=== PATIENT | male | born 1995 | race African-American/Black ===

== ENCOUNTER 2016-07-09 15:35 | Emergency (ER) | payer MEDICAID ==
[~2016-07-09] VITALS: Ht 195.6 cm; Wt 77.1 kg
[2016-07-09] MEDS ORDERED: ACETAMINOPHEN-1 EAC1 ORAL (16:31)
[2016-07-09] MEDS ORDERED: VENTOLIN HFA18 GM INH (16:31)
[2016-07-09 16:40] VITALS: BP 121/62
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
== END 2016-07-09 16:45 | disposition home or self-care (01) ==
LOC: EMR 16:40
DX: R05 Cough (principal); M54.5 Low back pain
CPT/HCPCS: 99284

== ENCOUNTER 2017-03-14 13:56 | Inpatient (IN) | payer MEDICAID ==
[~2017-03-14] VITALS: Ht 193 cm; Wt 78.5 kg
[~2017-03-14 13:56] MED LIST: ACETAMINOPHEN-1 EAC1 ORAL; VENTOLIN HFA18 GM INH
[2017-03-14] MEDS ORDERED: NKM (14:08)
--- NOTE | 2017-03-14 14:09 | Emergency Room Report ---
History of Present Illness General Chief Complaint: To Be Triaged Source: Patient Present Illness HPI The patient presents vomiting weakness. He feels like it's alcohol toxicity but he hasn't been drinking. Denies vomiting blood. He's had loose stools also. He denies, pain. Feels it is about to pass out. This started yesterday. He denies recent alcohol use, unusual foods, travel or exposure to ill contacts. He denies chest pain, shortness of breath (although he has a history of asthma) , cough, sore throat, joint pain, skin rashes. Allergies: Coded Allergies: No Known Allergies (Unverified , 07/09/16) Patient History Past Medical History: see triage record Social History: Reports: smoking - Prior, alcohol use - not recent, Denies: drug use Social History Narrative at home Reviewed Nursing Documentation: PMH: Agreed, PSxH: Agreed Review of Systems All Other Systems: negative except mentioned in HPI Physical Exam Vital Signs Date Time Temp Pulse Resp B/P (MAP) Pulse Ox O2 Delivery O2 Flow Rate FiO2 03/14/17 14:05 98.2 58 18 141/78 100 Room Air Sp02 EP Interpretation: reviewed, normal General Appearance: GCS 15, moderate distress, lethargic Head: normocephalic Eyes: bilateral eye normal inspection, bilateral eye PERRL ENT: moist mucus membranes Neck: supple Respiratory: lungs clear, normal breath sounds Cardiovascular #1: regular rate, rhythm Cardiovascular #2: 2+ radial (R) Gastrointestinal: normal inspection, no mass, non-distended, no guarding, no rebound, tenderness - epigastric, decreased bowel sounds, scaphoid Musculoskeletal: back normal, normal range of motion Neurologic: alert, oriented x3, grossly normal Psychiatric: depressed affect, anxious Skin: normal inspection, warm/dry, other - sallo Medical Decision Making Diagnostic Impression: Primary Impression: Intractable vomiting Qualified Codes: R11.2 - Nausea with vomiting, unspecified Additional Impression: Abdominal pain Qualified Codes: R10.13 - Epigastric pain ER Course Patient presents with vomiting weakness. Differential includes gastroenteritis , appendicitis, food poisoning, gastritis, peptic ulcer disease amongst others. He needs IV hydration and Zofran. In addition we need to evaluate his labs including a lactic acid. Labs without leukocytosis, slightly low potassium, increased lactate. Initial improvement, then c/o increased pain. Treated. Continued vomiting. Still with pain. Treated with reglan. Continued vomiting, but less often. Admit med Dr. Oropeza. Laboratory Tests Test 03/14/17 14:30 White Blood Count 5.8 K/UL (4.8-10.8) Red Blood Count 5.39 M/UL (4.70-6.10) Hemoglobin 16.4 G/DL (14.2-18.0) Hematocrit 46.9 % (42.0-52.0) Mean Corpuscular Volume 87 FL (80-99) Mean Corpuscular Hemoglobin 30.3 PG (27.0-31.0) Mean Corpuscular Hemoglobin Concent 34.9 G/DL (32.0-36.0) Red Cell Distribution Width 10.9 % (11.6-14.8) L Platelet Count 228 K/UL (150-450) Mean Platelet Volume 7.2 FL (6.5-10.1) Neutrophils (%) (Auto) 62.0 % (45.0-75.0) Lymphocytes (%) (Auto) 29.9 % (20.0-45.0) Monocytes (%) (Auto) 6.1 % (1.0-10.0) Eosinophils (%) (Auto) 0.6 % (0.0-3.0) Basophils (%) (Auto) 1.4 % (0.0-2.0) Sodium Level 137 MMOL/L (136-145) Potassium Level 3.6 MMOL/L (3.5-5.1) Chloride Level 102 MMOL/L (98-107) Carbon Dioxide Level 26 MMOL/L (21-32) Anion Gap 10 mmol/L (5-15) Blood Urea Nitrogen 12 mg/dL (7-18) Creatinine 1.1 MG/DL (0.55-1.30) Estimate Glomerular Filtration Rate > 60 mL/min (>60) Glucose Level 136 MG/DL (74-106) H Lactic Acid Level 2.40 mmol/L (0.66-2.22) H Calcium Level 9.9 MG/DL (8.5-10.1) Total Bilirubin 1.2 MG/DL (0.2-1.0) H Direct Bilirubin 0.2 MG/DL (0.0-0.3) Aspartate Amino Transferase (AST) 34 U/L (15-37) Alanine Aminotransferase (ALT) 42 U/L (12-78) Alkaline Phosphatase 74 U/L (46-116) Total Protein 8.1 G/DL (6.4-8.2) Albumin 4.5 G/DL (3.4-5.0) Globulin 3.6 g/dL Albumin/Globulin Ratio 1.2 (1.0-2.7) Lipase 123 U/L (73-393) Serum Alcohol < 3 mg/dL Rhythm Strip Diag. Results Rhythm: NSR, no PVC's, no ectopy Other X-Ray Diagnostic Results Other X-Ray Diagnostic Results : X-Ray ordered: abd # of Views/Limited Vs Complete: 1 View Indication: Other EP Interpretation: Yes Interpretation: nonspecific bowel gas, no sbo, other - no masses Impression: No acute disease Electronically Signed by: Marcelo Marshall MD Last Vital Signs Date Time Temp Pulse Resp B/P (MAP) Pulse Ox O2 Delivery O2 Flow Rate FiO2 03/15/17 04:00 98.2 20 112/59 100 Room Air 03/14/17 19:51 68 Status: improved Disposition: ADMITTED INPATIENT Condition: Serious Scripts No Active Prescriptions or Reported Meds Marcelo Marshall M.D. Mar 14, 2017 14:09
[2017-03-14 14:47] LABS: BASOPHILS % (AUTO) 1.4 % (0.0-2.0); EOSINOPHILS % (AUTO) 0.6 % (0.0-3.0); HEMATOCRIT 46.9 % (42.0-52.0); HEMOGLOBIN 16.4 G/DL (14.2-18.0); LYMPHOCYTES % (AUTO) 29.9 % (20.0-45.0); MEAN CORPUSCULAR VOLUME 87 FL (80-99); MONOCYTES % (AUTO) 6.1 % (1.0-10.0); PLATELET COUNT 228 K/UL (150-450); RED BLOOD COUNT 5.39 M/UL (4.70-6.10); RED CELL DISTRIBUTION WIDTH 10.9 % (11.6-14.8); WHITE BLOOD COUNT 5.8 K/UL (4.8-10.8)
[2017-03-14 15:19] LABS: ALANINE AMINOTRANSFERASE 42 U/L (12-78); ALBUMIN 4.5 G/DL (3.4-5.0); ALBUMIN/GLOBULIN RATIO 1.2 (1.0-2.7); ALKALINE PHOSPHATASE 74 U/L (46-116); ANION GAP 10 mmol/L (5-15); ASPARTATE AMINO TRANSFERASE 34 U/L (15-37); BLOOD UREA NITROGEN 12 mg/dL (7-18); CALCIUM 9.9 MG/DL (8.5-10.1); CARBON DIOXIDE 26 MMOL/L (21-32); CHLORIDE 102 MMOL/L (98-107); CREATININE 1.1 MG/DL (0.55-1.30); POTASSIUM 3.6 MMOL/L (3.5-5.1); SODIUM 137 MMOL/L (136-145)
[2017-03-14 15:20] LABS: BILIRUBIN,TOTAL 1.2 MG/DL (0.2-1.0)
[2017-03-14] MEDS ORDERED: Morphine Sulfate 4mg/ml Inj IVP ONE (15:30)
[2017-03-14 15:38] LABS: BILIRUBIN,DIRECT 0.2 MG/DL (0.0-0.3)
[2017-03-14 16:00] VITALS: BP 140/76
[2017-03-14] MEDS ORDERED: Metoclopramide 10mg/2ml Inj IVP ONE (16:30)
[2017-03-14] MEDS ORDERED: DiphenhydrAMINE 50mg/ml Inj IVP ONE (16:30)
[2017-03-14] MEDS ORDERED: fentaNYL 100 mcg/2 mL IV ONE (17:30)
[2017-03-14 18:30] VITALS: BP 142/77
[2017-03-14 20:00] VITALS: BP 131/96
[2017-03-14] MEDS ORDERED: Morphine Sulfate 4mg/ml Inj IVP PRN (20:45)
[2017-03-14] MEDS: Pantoprazole Inj IVP SCH (21:14)
[2017-03-14] MEDS: D5NS 1,000 ML IV SCH (21:14)
[2017-03-14] MEDS: Heparin 5000 units/ml inj SUBQ SCH (21:21)
[2017-03-15] VITALS: BP 115/61
[2017-03-15 04:00] VITALS: BP 112/59
[2017-03-15] MEDS: D5NS 1,000 ML IV SCH (07:00)
--- NOTE | 2017-03-15 07:33 | History & Physical ---
History and Physical History & Physicial seen and examined. Dictation is completed Toni Oropeza MD Mar 15, 2017 07:33
--- NOTE | 2017-03-15 07:33 | History & Physical ---
History and Physical History & Physicial seen and examined. Dictation is completed Toni Oropeza MD Mar 15, 2017 07:33
--- NOTE | 2017-03-15 07:33 | History & Physical ---
History and Physical History & Physicial seen and examined. Dictation is completed Toni Oropeza MD Mar 15, 2017 07:33
--- NOTE | 2017-03-15 07:34 | General Progress Note ---
Assessment/Plan Status: stable Assessment/Plan 1- Acute gastritis 2- Abn LFT 3- Abn BS 4- GI-DVT prophylaxia Plan: Current conservative management Gi-Dr Kellogg consulted Subjective Allergies: Coded Allergies: No Known Allergies (Unverified , 07/09/16) Objective Last 24 Hour Vital Signs Date Time Temp Pulse Resp B/P (MAP) Pulse Ox O2 Delivery O2 Flow Rate FiO2 03/15/17 04:00 98.2 20 112/59 100 Room Air 03/15/17 00:00 98.0 18 115/61 97 Room Air 03/14/17 20:00 97.9 16 131/96 98 Room Air 03/14/17 19:51 68 20 119/63 100 Room Air 03/14/17 18:30 98.2 18 142/77 100 Room Air 03/14/17 16:25 98.2 03/14/17 16:25 98.2 03/14/17 16:00 98.2 16 140/76 100 Room Air 03/14/17 14:05 98.2 58 18 141/78 100 Room Air Laboratory Tests 03/14/17 14:30: White Blood Count 5.8, Red Blood Count 5.39, Hemoglobin 16.4, Hematocrit 46.9, Mean Corpuscular Volume 87, Mean Corpuscular Hemoglobin 30.3, Mean Corpuscular Hemoglobin Concent 34.9, Red Cell Distribution Width 10.9L, Platelet Count 228, Mean Platelet Volume 7.2, Neutrophils (%) (Auto) 62.0, Lymphocytes (%) (Auto) 29.9, Monocytes (%) (Auto) 6.1, Eosinophils (%) (Auto) 0.6, Basophils (%) (Auto ) 1.4, Sodium Level 137, Potassium Level 3.6, Chloride Level 102, Carbon Dioxide Level 26, Anion Gap 10, Blood Urea Nitrogen 12, Creatinine 1.1, Estimat Glomerular Filtration Rate > 60, Glucose Level 136H, Lactic Acid Level 2.40H, Calcium Level 9.9, Total Bilirubin 1.2H, Direct Bilirubin 0.2, Aspartate Amino Transf (AST/SGOT) 34, Alanine Aminotransferase (ALT/SGPT) 42, Alkaline Phosphatase 74, Total Protein 8.1, Albumin 4.5, Globulin 3.6, Albumin/Globulin Ratio 1.2, Lipase 123, Serum Alcohol < 3 03/14/17 18:20: Lactic Acid Level 1.50 03/15/17 05:15: White Blood Count [Pending], Red Blood Count [Pending], Hemoglobin [Pending], Hematocrit [Pending], Mean Corpuscular Volume [Pending], Mean Corpuscular Hemoglobin [Pending], Mean Corpuscular Hemoglobin Concent [Pending], Red Cell Distribution Width [Pending], Platelet Count [Pending], Mean Platelet Volume [ Pending], Neutrophils (%) (Auto) [Pending], Lymphocytes (%) (Auto) [Pending], Monocytes (%) (Auto) [Pending], Eosinophils (%) (Auto) [Pending], Basophils (%) (Auto) [Pending], Sodium Level [Pending], Potassium Level [Pending], Chloride Level [Pending], Carbon Dioxide Level [Pending], Blood Urea Nitrogen [Pending], Creatinine [Pending], Estimat Glomerular Filtration Rate [Pending], Glucose Level [Pending], Calcium Level [Pending], Hemoglobin A1c [Pending], Triglycerides Level [Pending], Cholesterol Level [Pending], LDL Cholesterol [ Pending], HDL Cholesterol [Pending], Cholesterol/HDL Ratio [Pending], Amylase Level [Pending] Height (Feet): 6 Height (Inches): 4.00 Weight (Pounds): 173 Toni Oropeza MD Mar 15, 2017 07:34
[2017-03-15 07:48] LABS: AMYLASE 48 U/L (25-115); ANION GAP 5 mmol/L (5-15); BLOOD UREA NITROGEN 10 mg/dL (7-18); CALCIUM 9.3 MG/DL (8.5-10.1); CARBON DIOXIDE 29 MMOL/L (21-32); CHLORIDE 105 MMOL/L (98-107); CHOLESTEROL 123 MG/DL (< 200); HDL CHOLESTEROL 54 MG/DL (40-60); POTASSIUM 3.8 MMOL/L (3.5-5.1); SODIUM 139 MMOL/L (136-145); TRIGLYCERIDES 28 MG/DL (0-200)
[2017-03-15 07:59] LABS: BASOPHILS % (AUTO) 0.9 % (0.0-2.0); EOSINOPHILS % (AUTO) 0.1 % (0.0-3.0); HEMATOCRIT 42.9 % (42.0-52.0); HEMOGLOBIN 15.4 G/DL (14.2-18.0); LYMPHOCYTES % (AUTO) 23.7 % (20.0-45.0); MEAN CORPUSCULAR VOLUME 87 FL (80-99); MONOCYTES % (AUTO) 8.4 % (1.0-10.0); PLATELET COUNT 230 K/UL (150-450); RED BLOOD COUNT 4.91 M/UL (4.70-6.10); WHITE BLOOD COUNT 9.1 K/UL (4.8-10.8)
[2017-03-15 08:00] VITALS: BP 105/64
[2017-03-15] MEDS: Pantoprazole Inj IVP SCH (08:45)
[2017-03-15] MEDS: Heparin 5000 units/ml inj SUBQ SCH (08:46)
--- NOTE | 2017-03-15 09:23 | Diagnostic Imaging Report ---
Indication: VOMITING. Technique: One view abdomen Findings: The bowel gas pattern is nonobstructive. The bones are unremarkable. There is no free fluid. No gross free air. No gross organomegaly. Impression: Negative abdomen..
--- NOTE | 2017-03-15 11:16 | General Progress Note ---
Assessment/Plan Assessment/Plan GI CONSULT Dictated Viral gastroenteritis vs. food poisoning Currently back to asymptomatic state Ok to start po diet Ok for d/c if tolerates PO Thank you Napoleon Corona MD Subjective Allergies: Coded Allergies: No Known Allergies (Unverified , 07/09/16) Objective Last 24 Hour Vital Signs Date Time Temp Pulse Resp B/P (MAP) Pulse Ox O2 Delivery O2 Flow Rate FiO2 03/15/17 08:00 98.1 75 16 105/64 95 Room Air 03/15/17 04:00 98.2 20 112/59 100 Room Air 03/15/17 00:00 98.0 18 115/61 97 Room Air 03/14/17 20:00 97.9 16 131/96 98 Room Air 03/14/17 19:51 68 20 119/63 100 Room Air 03/14/17 18:30 98.2 18 142/77 100 Room Air 03/14/17 16:25 98.2 03/14/17 16:25 98.2 03/14/17 16:00 98.2 16 140/76 100 Room Air 03/14/17 14:05 98.2 58 18 141/78 100 Room Air Laboratory Tests 03/14/17 14:30: White Blood Count 5.8, Red Blood Count 5.39, Hemoglobin 16.4, Hematocrit 46.9, Mean Corpuscular Volume 87, Mean Corpuscular Hemoglobin 30.3, Mean Corpuscular Hemoglobin Concent 34.9, Red Cell Distribution Width 10.9L, Platelet Count 228, Mean Platelet Volume 7.2, Neutrophils (%) (Auto) 62.0, Lymphocytes (%) (Auto) 29.9, Monocytes (%) (Auto) 6.1, Eosinophils (%) (Auto) 0.6, Basophils (%) (Auto ) 1.4, Sodium Level 137, Potassium Level 3.6, Chloride Level 102, Carbon Dioxide Level 26, Anion Gap 10, Blood Urea Nitrogen 12, Creatinine 1.1, Estimat Glomerular Filtration Rate > 60, Glucose Level 136H, Lactic Acid Level 2.40H, Calcium Level 9.9, Total Bilirubin 1.2H, Direct Bilirubin 0.2, Aspartate Amino Transf (AST/SGOT) 34, Alanine Aminotransferase (ALT/SGPT) 42, Alkaline Phosphatase 74, Total Protein 8.1, Albumin 4.5, Globulin 3.6, Albumin/Globulin Ratio 1.2, Lipase 123, Serum Alcohol < 3 03/14/17 18:20: Lactic Acid Level 1.50 03/15/17 05:15: White Blood Count 9.1#, Red Blood Count 4.91, Hemoglobin 15.4, Hematocrit 42.9, Mean Corpuscular Volume 87, Mean Corpuscular Hemoglobin 31.4H, Mean Corpuscular Hemoglobin Concent 36.0, Red Cell Distribution Width 11.0L, Platelet Count 230, Mean Platelet Volume 6.9, Neutrophils (%) (Auto) 67.0, Lymphocytes (%) (Auto) 23.7, Monocytes (%) (Auto) 8.4, Eosinophils (%) (Auto) 0.1, Basophils (%) (Auto ) 0.9, Sodium Level 139, Potassium Level 3.8, Chloride Level 105, Carbon Dioxide Level 29, Anion Gap 5, Blood Urea Nitrogen 10, Creatinine 1.0, Estimat Glomerular Filtration Rate > 60, Glucose Level 107H, Calcium Level 9.3, Hemoglobin A1c 5.5, Triglycerides Level 28, Cholesterol Level 123, LDL Cholesterol 65, HDL Cholesterol 54, Cholesterol/HDL Ratio 2.3L, Amylase Level 48 Height (Feet): 6 Height (Inches): 4.00 Weight (Pounds): 173 NAPOLEON CORONA Mar 15, 2017 11:16
[2017-03-15 12:00] VITALS: BP 122/69
--- NOTE | 2017-03-15 17:30 | History and Physical Report ---
DATE OF ADMISSION: 03/14/2017 SOURCE OF INFORMATION: Patient and EMR. HISTORY OF PRESENT ILLNESS: The patient is a 21-year-old male, otherwise healthy with unremarkable past medical history. The patient presented with multiple intractable vomitus in the afternoon after having the meal including egg. The patient denies any . The patient reported at least 10 times vomitus. The patient denies any hematemesis. The patient denies any hematochezia, diarrhea, or abdominal pain. Initial evaluation in the emergency room demonstrate a stable vital signs. At the time of evaluation, the patient is comfortable in the med/surg unit. REVIEW OF SYSTEMS: All 12 elements of review of systems reviewed with the patient. Pertinent positive and negative as above. PAST SURGICAL HISTORY: Denies. HOME MEDICATION: Denies. ALLERGIES: NKDA. FAMILY HISTORY: Reviewed and noncontributory. SOCIAL HISTORY: The patient denies history of illicit drug abuse or smoking. No alcohol abuse. The patient is single. Positive for recreational marijuana use. PHYSICAL EXAMINATION: VITAL SIGNS: Blood pressure 140/80, temperature 98.2, and pulse oximetry 98% on room air. HEAD AND NECK: Atraumatic and normocephalic. CHEST: Clear to auscultation. HEART: S1 and S2. Regular rate and rhythm. ABDOMEN: Soft. No organomegaly. MUSCULOSKELETAL: No gross focal motor deficits. NEUROLOGY: Awake, alert, and oriented x3. PSYCHIATRIC: Mood and affect are normal. LABORATORY DATA: Labs dated 03/14/2017 shows WBC 5.8, hemoglobin 16.4, and platelets 228. Sodium 137, potassium 3.6, BUN 12, and creatinine 1.1. Glucose 136. Hemoglobin A1c pending. Total bilirubin 1.2. ASSESSMENT AND PLAN: 1. Acute gastritis. 2. Abnormal blood sugar. 3. Abnormal liver function tests. 4. Abnormal lactic acid. 5. Gastrointestinal and deep vein thrombosis prophylaxis. PLAN OF CARE: Continue with conservative management. Continue with the intravenous fluid replenishment. Valerie loera We will check the hepatitis C and hepatitis panel. Toni Oropeza M.D. DR: EUGENIO JOB#: [id number] CC:
--- NOTE | 2017-03-16 01:31 | Consultation ---
DATE OF CONSULTATION: 03/15/2017 CHIEF COMPLAINT: I was asked to see this patient by Dr. Toni Oropeza for evaluation of his vomiting. HISTORY OF PRESENT ILLNESS: The patient is a pleasant 21-year-old man, who was in his usual state of health until after he had breakfast which was sausages and eggs yesterday. Subsequently he had severe bouts of intractable nausea and vomiting, which brought him to the emergency room. His vomiting stopped overnight and he feels better now. He had no hematemesis. He has also no diarrhea, but he had some abdominal discomfort. He feels much better now and back to baseline. He has not had this before. PAST MEDICAL HISTORY: Otherwise negative. MEDICATIONS: None. FAMILY HISTORY: Noncontributory. SOCIAL HISTORY: The patient is , has two children. He does not smoke or drink. Drugs, he smokes marijuana. REVIEW OF SYSTEMS: Otherwise negative. PHYSICAL EXAMINATION: GENERAL: A pleasant man, seen in the room, family at bedside. HEENT: Normocephalic and atraumatic. Sclerae anicteric. Oropharynx clear. NECK: Supple. CHEST: Clear to auscultation. CARDIOVASCULAR: Regular rhythm and rate. ABDOMEN: Soft. Good bowel sounds. EXTREMITIES: No edema. LABORATORY AND DIAGNOSTIC DATA: Laboratory data noted. ASSESSMENT: This patient presents with episode of acute nausea and vomiting, which has spontaneously resolved overnight. The patient is to be managed conservatively. The patient is feeling better. I will start his oral diet and watch him closely. If he does well, then he can be discharged with outpatient followup. If this is persistent, further workup may be necessary. RECOMMENDATIONS: Per above discussion and per orders written in the chart. Thank you for asking me to participate in the care of this patient. Napoleon Corona M.D. DR: SASHA JOB#: [id number] CC:
[2017-03-16] MEDS ORDERED: NKM (03:25)
[2017-03-16] MEDS ORDERED: CAPSAICIN42.5 GM TP (03:39)
[2017-03-16] MEDS ORDERED: ONDANSETRON ODT4 MG ORAL (03:39)
--- NOTE | 2017-03-17 11:23 | Diagnostic Imaging Report ---
Indication: N/V Technique: Ultrasound of the abdomen. Comparison: None Findings: Liver: The liver is normal in size and echogenicity. No focal abnormalities are noted. Gallbladder: The gallbladder is normal. No stones are visualized. The wall is not thickened. Common bile duct: Normal in size. Pancreas: The visualized portion of pancreas is normal in echogenicity. There are no masses. Kidneys: The kidneys are normal in size and echogenicity. There is no hydronephrosis. Spleen: The spleen is normal in size and echogenicity. Aorta: The visualized portion of the aorta is normal in caliber. IVC: The demonstrated portion of the inferior vena cava is normal. Impression: Normal ultrasound of the abdomen.
--- NOTE | 2017-03-17 21:45 | Discharge Summary 2 SIG ---
DATE OF ADMISSION: 03/14/2017 DATE OF DISCHARGE: 03/15/2017 REASON FOR ADMISSION: 21-year-old male came to the emergency room complaining of generalized weakness. He reported abdominal pain and intractable vomiting after eating food, which included eggs. He denied vomiting blood. He denied recent alcohol abuse, unusual food, travel, or exposure to ill contacts. He denied chest pain, shortness of breath, cough, sore throat, joint pain, and skin rashes. Patient reported recreational marijuana use. Workup in the emergency room revealed stable vital signs. No fever. Normotensive. Pulse oximetry was stable on room air. Lactic acid was elevated. No leukocytosis. The patient was given antiemetic , but despite medication he continued vomiting and still had abdominal pain. The patient was admitted to Med/Surg floor with diagnosis of abdominal pain and intractable vomiting. HOSPITAL STAY: The patient was admitted. The patient was started on IV fluids. GI consult was requested. Per GI specialist, the episodes of acute nausea and vomiting spontaneously resolved overnight. The patient can be managed conservatively. He started the patient on oral diet and advised to monitor tolerance. Antiemetic provided as needed. The patient was able to tolerate diet. According to the GI specialist , episodes of acute nausea and vomiting were likely due to viral gastroenteritis versus food poisoning and subsequently resolved. Patient may also have acute gastritis . The patient was on GI prophylaxis. Initially lactic acid- 2.4, repeated later in few hours - 1.5. Abdominal ultrasound was essentially negative. Abdominal x-ray was negative. The patient was noted to have elevated blood sugar on chemistry. Hemoglobin A1c -5.5, stable. Patient tolerated diet, nausea, vomiting, abdominal pain resolved, Patient was stable for discharge . Due to the rapid and unexpected improvement in the patient's condition, the patient was discharged in one day. FINAL DIAGNOSES: 1. Acute gastritis. 2. Possible viral gastroenteritis 3. Possible food poisoning. 4. Abnormal blood sugar. 5. Lactic acidosis-resolved DISCHARGE MEDICATIONS: See medication reconciliation list. DISCHARGE INSTRUCTIONS: The patient was discharged home. Follow up with the primary doctor in the next week. Patient advised if symptoms return, such as intractable nausea with vomiting and abdominal pain, go to the nearest ER for further evaluation. Toni Oropeza M.D. I have been assigned to dictate discharge summary on this account and I was not involved in the patient's management. Sandrine Kim (Vanchtein) NShahrzad DR: Niya JOB#: [id number] CC: CRISTHIAN
== END 2017-03-15 13:48 | disposition home or self-care (01) | DRG 241 ==
LOC: EMR 14:31 → 3E 18:48 → EDBEDREQ 18:56 → 3E 20:04
DX: K29.00 Acute gastritis without bleeding (principal); E87.2 Acidosis; A08.4 Viral intestinal infection, unspecified; T62.91XA Toxic effect of unspecified noxious substance eaten as food, accidental (unintentional), initial encounter; R11.2 Nausea with vomiting, unspecified; R73.09 Other abnormal glucose
CPT/HCPCS: 36415; 74000; 76700; 80048; 80053; 80061; 80329; 82150; 82248; 82962; 83036; 83605; 83690; 85025; 99285; J2405; J2765

== ENCOUNTER 2017-03-16 03:14 | Emergency (ER) | payer MEDICAID ==
[~2017-03-16] VITALS: Ht 195.6 cm; Wt 74.8 kg
[~2017-03-16 03:14] MED LIST changes: +NKM
[2017-03-16] MEDS ORDERED: NKM (03:25)
[2017-03-16 03:30] VITALS: BP 139/91
[2017-03-16] MEDS ORDERED: CAPSAICIN42.5 GM TP (03:39)
[2017-03-16] MEDS ORDERED: ONDANSETRON ODT4 MG ORAL (03:39)
[2017-03-16] MEDS ORDERED: Capsaicin 0.075% Cream TOPIC ONE (03:45)
--- NOTE | 2017-03-16 03:45 | Emergency Room Report ---
History of Present Illness General Chief Complaint: Abdominal Pain Source: Patient Present Illness HPI 21-year-old male, chronic marijuana use, presenting with intractable nausea vomiting. Patient has had nausea and vomiting for the last 2 days, he was admitted to the hospital and discharged yesterday. States that the nausea and vomiting had returned. Complains of epigastric burning. No black or bloody stools. Nausea vomiting more than 4 episodes today, nonbilious nonbloody. Allergies: Coded Allergies: No Known Allergies (Unverified , 07/09/16) Patient History Past Medical History: see triage record Past Surgical History: none Pertinent Family History: none Reviewed Nursing Documentation: PMH: Agreed, PSxH: Agreed Nursing Documentation-PMH Past Medical History: No History, Except For Hx Cardiac Problems: No Hx Asthma: Yes Hx Cancer: No Hx Gastrointestinal Problems: No Hx Neurological Problems: No Review of Systems All Other Systems: negative except mentioned in HPI Physical Exam Vital Signs Date Time Temp Pulse Resp B/P (MAP) Pulse Ox O2 Delivery O2 Flow Rate FiO2 03/16/17 03:20 97.5 69 16 139/91 99 Room Air Sp02 EP Interpretation: reviewed, normal General Appearance: alert, GCS 15, non-toxic, mild distress Head: normocephalic, atraumatic Eyes: bilateral eye normal inspection, bilateral eye PERRL, bilateral eye EOMI ENT: normal ENT inspection, normal pharynx, normal voice, moist mucus membranes Neck: normal inspection, full range of motion, supple Respiratory: normal inspection, lungs clear, normal breath sounds, no respiratory distress, no retraction, no wheezing, speaking full sentences, chest symmetrical Cardiovascular #1: normal inspection, regular rate, rhythm, no edema, normal capillary refill Cardiovascular #2: 2+ radial (R), 2+ radial (L) Gastrointestinal: soft, non-distended, no guarding, other - mild episgastric tenderness Musculoskeletal: normal inspection, back normal, normal range of motion, non- tender Neurologic: normal inspection, alert, oriented x3, responsive, motor strength/ tone normal, sensory intact, normal gait, speech normal Psychiatric: normal inspection, judgement/insight normal, memory normal Skin: normal inspection, normal color, no rash, warm/dry, well hydrated, normal turgor Medical Decision Making Diagnostic Impression: Primary Impression: Cannabis hyperemesis syndrome concurrent with and due to canna... ER Course year-old male with intractable nausea vomiting Differential Diagnosis: Gastritis, gastroenteritis, versus cyclic vomiting secondary to marijuana use At this time abdomen is soft nontender, not likely to have acute intra- abdominal surgical pathology, will hold CT for now. Plan: Basic labs, ua Zofran, capsaicin cream, IVF ER course: Patient has remained stable during ED stay. Pain improved. Repeat abdominal exam is nontender. Tolerating PO Disposition: Patient is to be discharged to home. Prescriptions given are capsaicin cream and Zofran Patient is instructed to follow up with their primary care doctor within 5 days. Patient told to refrain from any marijuana use Strict return precautions discussed with patient such as fever, chills, worsening/severe abdominal pain, nausea, vomiting, black or bloody stools, which may indicate severe illness. Patient verbalizes understanding and agrees with plan. Please note that this Emergency Department Report was dictated using [employer] skills instructor technology software, occasionally this can lead to erroneous entry secondary to interpretation by the dictation equipment Last Vital Signs Date Time Temp Pulse Resp B/P (MAP) Pulse Ox O2 Delivery O2 Flow Rate FiO2 03/16/17 03:20 97.5 69 16 139/91 99 Room Air Disposition: HOME, SELF-CARE Condition: Improved Scripts Capsaicin (CAPSAICIN) 42.5 Gm Cream..g. 42.5 GM TP THREE TIMES A DAY, #1 TUBE 0 Refills Prov: Starla Cardenas M.D. 03/16/17 Ondansetron Odt* (ZOFRAN ODT*) 4 Mg Tab.rapdis 4 MG ORAL EVERY 8 HOURS, #10 TAB 0 Refills Prov: Starla Cardenas M.D. 03/16/17 Patient Instructions: Nausea and Vomiting, Adult, [id number], Cannabis Use Disorder Starla Cardenas M.D. Mar 16, 2017 03:45
[2017-03-16 04:10] LABS: BASOPHILS % (AUTO) 1.2 % (0.0-2.0); EOSINOPHILS % (AUTO) 0.9 % (0.0-3.0); HEMOGLOBIN 14.9 G/DL (14.2-18.0); LYMPHOCYTES % (AUTO) 50.9 % (20.0-45.0); MEAN CORPUSCULAR VOLUME 87 FL (80-99); MONOCYTES % (AUTO) 11.5 % (1.0-10.0); NEUTROPHILS % (AUTO) 35.6 % (45.0-75.0); PLATELET COUNT 201 K/UL (150-450); RED BLOOD COUNT 4.93 M/UL (4.70-6.10); RED CELL DISTRIBUTION WIDTH 10.8 % (11.6-14.8); WHITE BLOOD COUNT 5.4 K/UL (4.8-10.8)
[2017-03-16 04:29] LABS: ALANINE AMINOTRANSFERASE 35 U/L (12-78); ALBUMIN 4.1 G/DL (3.4-5.0); ALBUMIN/GLOBULIN RATIO 1.4 (1.0-2.7); ALKALINE PHOSPHATASE 59 U/L (46-116); ANION GAP 8 mmol/L (5-15); ASPARTATE AMINO TRANSFERASE 28 U/L (15-37); BILIRUBIN,TOTAL 1.8 MG/DL (0.2-1.0); BLOOD UREA NITROGEN 13 mg/dL (7-18); CALCIUM 9.1 MG/DL (8.5-10.1); CARBON DIOXIDE 29 MMOL/L (21-32); CHLORIDE 103 MMOL/L (98-107); CREATININE 1.3 MG/DL (0.55-1.30); POTASSIUM 3.6 MMOL/L (3.5-5.1); SODIUM 140 MMOL/L (136-145)
[2017-03-16] MEDS ORDERED: Metoclopramide 10mg/2ml Inj IVP ONE (04:30)
[2017-03-16] MEDS ORDERED: DiphenhydrAMINE 50mg/ml Inj IVP ONE (04:30)
[2017-03-16 04:36] LABS: BILIRUBIN,DIRECT 0.3 MG/DL (0.0-0.3)
[2017-03-16] MEDS ORDERED: Ketorolac 30mg Inj IV ONE (05:00)
[2017-03-16 05:30] VITALS: BP 129/80
[2017-03-16] MEDS ORDERED: Morphine Sulfate 4mg/ml Inj IVP ONE (05:30)
[2017-03-16 06:17] VITALS: BP 129/80
== END 2017-03-16 06:00 | disposition home or self-care (01) ==
LOC: EMR 03:50
DX: R11.2 Nausea with vomiting, unspecified (principal); F12.10 Cannabis abuse, uncomplicated
CPT/HCPCS: 36415; 80053; 80307; 82248; 83690; 85025; 96361; 96374; 96375; 96376; 99284; J1200; J1885; J2270; J2405; J2765; S0028